=== PATIENT | female | born 1935 | race Caucasian/White ===

== ENCOUNTER 2016-06-11 19:33 | Emergency (ER) | payer OTHER, MEDICARE ==
[~2016-06-11] VITALS: Ht 160 cm; Wt 71.2 kg
[2016-06-11] MEDS ORDERED: HYZAAR 25 MG-101 TA1 PO (19:38)
[2016-06-11] MEDS ORDERED: DEXILANT60 M1 PO (19:38)
[2016-06-11] MEDS ORDERED: AFEDITAB CR60 MG PO (19:39)
[2016-06-11] MEDS ORDERED: COREG12.5 M1 PO (19:40)
[2016-06-11] MEDS ORDERED: CO Q-10200 MG PO (19:41)
[2016-06-11] MEDS ORDERED: VITAMIN C1000 M4 PO (19:41)
[2016-06-11] MEDS ORDERED: MULTAQ400 MG PO (19:41)
[2016-06-11] MEDS ORDERED: ASPIRIN CHILDRE81 MG PO (19:41)
[2016-06-11] MEDS ORDERED: VITAMIN D1000 IU PO (19:42)
[2016-06-11] MEDS ORDERED: PRAVACHOL40 MG PO (19:42)
[2016-06-11] MEDS ORDERED: KLOR-CON 1010 ME1 PO (19:42)
[2016-06-11] MEDS ORDERED: BACLOFEN20 M1 PO (19:43)
[2016-06-11] MEDS ORDERED: CEPHULAC10 GM/151 PO (19:43)
[2016-06-11] MEDS ORDERED: PERCOCET 325 MG1 TAB PO (19:43)
[2016-06-11] MEDS ORDERED: PEPCID40 MG PO (19:44)
[2016-06-11 20:14] LABS: BASO # 0.1 10*3/uL (0.0-0.1); BASO % 0.5 % (0.0-1.0); EOS # 0.2 10*3/uL (0.0-0.4); EOS % 1.9 % (1.0-4.0); HEMATOCRIT 36.8 % (37.0-47.0); HEMOGLOBIN 12.3 g/dl (12.0-16.0); LYMPH # 1.3 10*3/uL (1.3-4.4); LYMPH % 13.7 % (27.0-41.0); MEAN CELL VOLUME 90.6 fl (81.0-99.0); MEAN CORPUSCULAR HGB 30.3 pg (27.0-31.0); MEAN CORPUSCULAR HGB CONC 33.4 g/dl (33.0-37.0); MEAN PLATELET VOLUME 9.7 fl (9.6-12.3); MONO # 0.5 10*3/uL (0.1-1.0); MONO % 4.9 % (3.0-9.0); NEUT # 7.3 10*3/uL (2.3-7.9); NEUT % 78.7 % (47.0-73.0); PLATELET COUNT AUTOMATED 373 10*3/uL (130-400); RED BLOOD COUNT 4.06 10*6/uL (4.10-5.10); RED CELL DISTRI WIDTH 14.8 % (0-14.5); WHITE BLOOD COUNT 9.3 10*3/uL (4.8-10.8)
[2016-06-11 20:25] LABS: INTERNATIONAL NORM RATIO 2.1 (2.0-3.5); PROTHROMBIN TIME 23.4 SECONDS (9.0-12.4)
[2016-06-11 20:31] LABS: POTASSIUM 4.2 mmol/L (3.5-5.1); TROPONIN I 0.033 ng/ml (<0.045)
[2016-06-11 20:38] LABS: BILIRUBIN NEGATIVE (NEGATIVE); BLOOD TRACE-INTACT (NEGATIVE); CLARITY CLEAR (CLEAR); COLOR YELLOW (YELLOW); GLUCOSE NEGATIVE (NEGATIVE); KETONE NEGATIVE (NEGATIVE); LEUKO ESTERASE TRACE (NEGATIVE); NITRITE NEGATIVE (NEGATIVE); PH 5.5 (5.0-9.0); PROTEIN 1+ (NEGATIVE); SPECIFIC GRAVITY <= 1.005 (1.005-1.030); UROBILINOGEN 0.2 E.U./dl (0.2-1.0)
[2016-06-11 20:45] LABS: BACTERIA TRACE; EPITHELIAL CELLS 35-40
[2016-06-11 20:46] LABS: URINE REFLEX COMMENT YES (NO)
[2016-06-11] MEDS ORDERED: Orphenadrine C100 MG PO (21:58)
== END 2016-06-11 21:59 | disposition home or self-care (01) ==
LOC: ED 19:33
PROVIDERS: Emergency Medicine Emergency Medical Services
DX: S16.1XXA Strain of muscle, fascia and tendon at neck level, initial encounter (principal); S80.02XA Contusion of left knee, initial encounter; Z88.2 Allergy status to sulfonamides; Z88.6 Allergy status to analgesic agent; Z88.8 Allergy status to other drugs, medicaments and biological substances; Z79.82 Long term (current) use of aspirin; Z79.899 Other long term (current) drug therapy; V89.2XXA Person injured in unspecified motor-vehicle accident, traffic, initial encounter; Y93.89 Activity, other specified; Y92.89 Other specified places as the place of occurrence of the external cause; Y99.9 Unspecified external cause status

== ENCOUNTER → 2017-01-07 | Outpatient (CLI) | payer MEDICARE, OTHER ==
[~2017-01-07] MED LIST: AFEDITAB CR60 MG PO; ASPIRIN CHILDRE81 MG PO; BACLOFEN20 M1 PO; CEPHULAC10 GM/151 PO; CO Q-10200 MG PO; COREG12.5 M1 PO; DEXILANT60 M1 PO; HYZAAR 25 MG-101 TA1 PO; KLOR-CON 1010 ME1 PO; MULTAQ400 MG PO; Orphenadrine C100 MG PO; PEPCID40 MG PO; PERCOCET 325 MG1 TAB PO; PRAVACHOL40 MG PO; VITAMIN C1000 M4 PO; VITAMIN D1000 IU PO
[2017-01-07 11:29] LABS: BASO # 0.1 10*3/uL (0.0-0.1); BASO % 0.5 % (0.0-1.0); EOS # 0.2 10*3/uL (0.0-0.4); EOS % 1.4 % (1.0-4.0); HEMATOCRIT 34.4 % (37.0-47.0); HEMOGLOBIN 11.4 g/dl (12.0-16.0); LYMPH # 1.9 10*3/uL (1.3-4.4); LYMPH % 17.4 % (27.0-41.0); MEAN CELL VOLUME 90.1 fl (81.0-99.0); MEAN CORPUSCULAR HGB 29.8 pg (27.0-31.0); MEAN CORPUSCULAR HGB CONC 33.1 g/dl (33.0-37.0); MEAN PLATELET VOLUME 9.2 fl (9.6-12.3); MONO # 0.8 10*3/uL (0.1-1.0); MONO % 6.9 % (3.0-9.0); NEUT # 8.1 10*3/uL (2.3-7.9); NEUT % 73.3 % (47.0-73.0); PLATELET COUNT AUTOMATED 453 10*3/uL (130-400); RED BLOOD COUNT 3.82 10*6/uL (4.10-5.10); RED CELL DISTRI WIDTH 14.6 % (0-14.5); WHITE BLOOD COUNT 11.1 10*3/uL (4.8-10.8)
[2017-01-07 11:58] LABS: URIC ACID 9.2 mg/dL (2.6-6.0)
[2017-01-08 09:06] LABS: RHEUMATOID ARTHRITIS FACTOR <10.0 IU/mL (0.0-13.9)
[2017-01-08 13:08] LABS: ANTI-RNP ANTIBODIES <0.2 AI (0.0-0.9); ANTI-SMITH ANTIBODIES <0.2 AI (0.0-0.9)
[2017-01-08 22:04] LABS: CCP ANTIBODIES IGG/IGA 6 units (0-19)
[2017-01-09 08:11] LABS: LUPUS DRVVT 108.8 sec (0.0-47.0)
[2017-01-09 09:07] LABS: LUPUS REFLEX INTERPRETATION Comment: (.)
== END | disposition home or self-care (01) ==
LOC: LAB 11:03
PROVIDERS: Orthopaedic Surgery
DX: M65.9 Synovitis and tenosynovitis, unspecified (principal); M06.4 Inflammatory polyarthropathy

== ENCOUNTER 2017-07-20 15:47 | Emergency (ER) | payer MEDICARE, OTHER ==
[~2017-07-20] VITALS: Ht 160 cm; Wt 66.7 kg
[2017-07-20 16:16] LABS: BASO # 0.1 10*3/uL (0.0-0.1); BASO % 0.5 % (0.0-1.0); EOS # 0.3 10*3/uL (0.0-0.4); EOS % 2.9 % (1.0-4.0); HEMATOCRIT 34.1 % (37.0-47.0); HEMOGLOBIN 11.2 g/dl (12.0-16.0); LYMPH # 2.5 10*3/uL (1.3-4.4); MEAN CELL VOLUME 88.1 fl (81.0-99.0); MEAN CORPUSCULAR HGB 28.9 pg (27.0-31.0); MEAN CORPUSCULAR HGB CONC 32.8 g/dl (33.0-37.0); MEAN PLATELET VOLUME 9.8 fl (9.6-12.3); MONO # 0.8 10*3/uL (0.1-1.0); MONO % 8.4 % (3.0-9.0); NEUT # 5.6 10*3/uL (2.3-7.9); NEUT % 60.9 % (47.0-73.0); PLATELET COUNT AUTOMATED 366 10*3/uL (130-400); RED BLOOD COUNT 3.87 10*6/uL (4.10-5.10); RED CELL DISTRI WIDTH 15.3 % (0-14.5); WHITE BLOOD COUNT 9.3 10*3/uL (4.8-10.8)
[2017-07-20 16:30] LABS: ACT PARTIAL THROMBO TIME 43.4 SECONDS (20.8-31.5); INTERNATIONAL NORM RATIO 4.5 (2.0-3.5)
[2017-07-20 16:36] LABS: ALBUMIN 3.4 gm/dl (3.1-4.5); ALKALINE PHOSPHATASE 57 U/L (45-117); BUN 12 mg/dl (7-24); CHLORIDE 102 mmol/L (98-107); CREATININE 1.13 mg/dL (0.55-1.02); POTASSIUM 3.9 mmol/L (3.5-5.1); SGOT/AST 13 IU/L (3-35); SGPT/ALT 19 U/L (12-78); SODIUM 135 mmol/L (136-145)
[2017-07-20 16:39] LABS: TROPONIN I < 0.015 ng/ml (<0.045)
[2017-07-20] MEDS ORDERED: NORVASC5 MG PO (17:35)
[2017-07-20 18:05] VITALS: BP 172/62
== END 2017-07-20 18:08 | disposition home or self-care (01) ==
LOC: ED 15:47
PROVIDERS: Nurse Practitioner Family
DX: R79.1 Abnormal coagulation profile (principal); R03.0 Elevated blood-pressure reading, without diagnosis of hypertension; Z88.2 Allergy status to sulfonamides; Z88.5 Allergy status to narcotic agent; Z88.8 Allergy status to other drugs, medicaments and biological substances; Z79.899 Other long term (current) drug therapy; Z79.82 Long term (current) use of aspirin; Z90.49 Acquired absence of other specified parts of digestive tract; Z90.710 Acquired absence of both cervix and uterus

== ENCOUNTER → 2018-08-14 | Outpatient (CLI) | payer MEDICARE, OTHER ==
[~2018-08-14] MED LIST changes: +NORVASC5 MG PO
== END | disposition home or self-care (01) ==
LOC: MRI 12:45
DX: M51.36 Other intervertebral disc degeneration, lumbar region (principal); M47.817 Spondylosis without myelopathy or radiculopathy, lumbosacral region; M48.02 Spinal stenosis, cervical region; M50.222 Other cervical disc displacement at C5-C6 level; M25.78 Osteophyte, vertebrae

== ENCOUNTER 2021-11-26 11:04 | Emergency (ER) | payer MEDICARE, OTHER ==
[~2021-11-26] VITALS: Ht 160 cm; Wt 59.0 kg
[2021-11-26 11:29] VITALS: BP 126/64
== END 2021-11-26 12:37 | disposition home or self-care (01) ==
LOC: ED 11:04
DX: S80.01XA Contusion of right knee, initial encounter (principal); Z88.2 Allergy status to sulfonamides; Z88.8 Allergy status to other drugs, medicaments and biological substances; Z79.899 Other long term (current) drug therapy; Z79.82 Long term (current) use of aspirin; Z90.49 Acquired absence of other specified parts of digestive tract; Z90.710 Acquired absence of both cervix and uterus; W22.8XXA Striking against or struck by other objects, initial encounter; Y93.89 Activity, other specified; Y92.89 Other specified places as the place of occurrence of the external cause; Y99.8 Other external cause status

== ENCOUNTER 2022-10-25 15:32 | Emergency (ER) | payer MEDICARE, OTHER ==
[~2022-10-25] VITALS: Ht 157.4 cm; Wt 57.6 kg
[~2022-10-25 15:32] MED LIST changes: +APRESOLINE25 MG PO; +BACLOFEN5 MG PO; +CARDIZEM120 MG PO; +CARVEDILOL12.5 MG PO; +CEPHALEXIN500 M1 PO; +COQ-10100 MG PO; +Coumadin2.5 MG PO; +Coumadin5 MG PO; +IMDUR SA30 MG PO; +ISOSORBIDE DINI30 MG PO; +LASIX20 MG PO; +LOSARTAN POTASS50 M1 PO; +MIRALAX119 GM PO; +NEXIUM20 M1 PO; +PERCOCET 5-3251 EACH PO; +PRAVASTATIN SOD40 MG PO; +SERTRALINE HYDR25 MG PO; +WOMEN MULTIVIT1 EAC1 PO; +ZESTRIL10 MG PO; +[UNRECOGNIZED DRUG - OTHER] PO
[2022-10-25 16:03] VITALS: BP 151/90
[2022-10-25 16:34] LABS: BASO % 0.3 % (0.0-1.0); EOS # 0.2 10*3/uL (0.0-0.4); HEMATOCRIT 30.9 % (37.0-47.0); LYMPH # 1.4 10*3/uL (1.3-4.4); MEAN CELL VOLUME 88.8 fl (81.0-99.0); MEAN CORPUSCULAR HGB 28.2 pg (27.0-31.0); MEAN CORPUSCULAR HGB CONC 31.7 g/dl (33.0-37.0); MONO # 0.7 10*3/uL (0.1-1.0); MONO % 8.8 % (3.0-9.0); NEUT # 5.7 10*3/uL (2.3-7.9); NEUT % 71.6 % (47.0-73.0); PLATELET COUNT AUTOMATED 265 10*3/uL (130-400); RED BLOOD COUNT 3.48 10*6/uL (4.10-5.10); RED CELL DISTRI WIDTH 16.1 % (0-14.5); WHITE BLOOD COUNT 7.9 10*3/uL (4.8-10.8)
[2022-10-25] MEDS ORDERED: XARE15TA PO (16:34)
[2022-10-25] MEDS ORDERED: CYCLOBENZAPRINE10 MG PO (16:35)
[2022-10-25 16:56] LABS: POTASSIUM 3.5 mmol/L (3.4-5.1); TOTAL PROTEIN 6.4 gm/dL (6.0-8.0)
[2022-10-25] MEDS ORDERED: BENZONATATE100 M1 PO (18:44)
== END 2022-10-25 18:53 | disposition home or self-care (01) ==
LOC: ED 15:32
PROVIDERS: Internal Medicine
DX: N17.9 Acute kidney failure, unspecified (principal); R05.9 Cough, unspecified; E78.00 Pure hypercholesterolemia, unspecified; M79.7 Fibromyalgia; I25.10 Atherosclerotic heart disease of native coronary artery without angina pectoris; Z88.2 Allergy status to sulfonamides; Z88.8 Allergy status to other drugs, medicaments and biological substances; M19.90 Unspecified osteoarthritis, unspecified site; Z91.041 Radiographic dye allergy status; Z90.49 Acquired absence of other specified parts of digestive tract; Z90.710 Acquired absence of both cervix and uterus; Z98.890 Other specified postprocedural states